=== PATIENT | male | born 1995 | race African-American/Black ===

== ENCOUNTER 2016-04-24 09:43 | Emergency (ER) | payer OTHER ==
[~2016-04-24] VITALS: Ht 165.1 cm; Wt 73.3 kg
[~2016-04-24 09:43] MED LIST: FLEXERIL10 MG PO; FLONASE16 GM NS; NOHOMEMEDS; ULTRAM50 MG PO; ZYRTEC
[2016-04-24 10:20] VITALS: BP 128/95
[2016-04-24 10:39] LABS: HEMATOCRIT 48.2 % (38.0-50.0); MCHC 35.1 G/DL (30.0-36.0); MCV 85.6 FL (86-99); MEAN PLAT.VOLUME 9.5 uM^3 (9.0-12.4); PLATELET COUNT 364 K/uL (156-360); RBC DIS.WIDTH-CV 12.3 % (11.8-14.6); RBC DIS.WIDTH-SD 38.2 % (39-53); RED BLOOD COUNT 5.63 M/uL (4.00-5.50); WHITE BLOOD COUNT 6.8 K/uL (4.1-10.2)
[2016-04-24 10:49] LABS: CHLORIDE 104 mEq/L (99-109); POTASSIUM 4.2 mEq/L (3.7-5.4); SODIUM 140 mEq/L (136-147)
[2016-04-24 10:51] LABS: GLUCOSE 93 mg/dL (70-99)
[2016-04-24 10:52] LABS: ANION GAP 7 MEQ/L (2-14)
[2016-04-24 10:53] LABS: TOTAL BILIRUBIN 1.5 mg/dL (0.0-1.0)
[2016-04-24 10:54] LABS: ALKALINE PHOSPHATASE 63 IU/L (3-129)
[2016-04-24 10:55] LABS: GFR ESTIMATE (CALCULATED) > 59 mL/min/
[2016-04-24 10:56] LABS: UREA NITROGEN (BUN) 14 mg/dL (9-23)
[2016-04-24 10:58] LABS: LIPASE 16 U/L (1.0-51.0)
== END 2016-04-24 13:40 | disposition left against medical advice (07) ==
LOC: EME 09:43
DX: R10.9 Unspecified abdominal pain (principal); Z53.21 Procedure and treatment not carried out due to patient leaving prior to being seen by health care provider
CPT/HCPCS: 80053; 81003; 83690; 85027

== ENCOUNTER 2017-01-04 23:20 | Emergency (ER) | payer OTHER ==
[~2017-01-04] VITALS: Ht 165.1 cm; Wt 76.1 kg
[2017-01-04 23:24] VITALS: BP 135/93
== END 2017-01-05 00:58 | disposition left against medical advice (07) ==
LOC: EME 23:20
DX: M54.5 Low back pain (principal); Z53.21 Procedure and treatment not carried out due to patient leaving prior to being seen by health care provider
CPT/HCPCS: 99281; 99283